=== PATIENT | male | born 1965 | race African-American/Black ===

== ENCOUNTER 2016-03-23 17:38 | Emergency (ER) | payer MEDICAID, OTHER ==
[~2016-03-23] VITALS: Ht 185.4 cm; Wt 127.9 kg
[2016-03-23 19:16] LABS: Hematocrit 42.5 % (41.0-53.0); Hemoglobin 13.6 g/dL (13.5-17.5); Mean Corpuscular Hemoglobin 29.8 pg (28.0-32.0); Mean Corpuscular Hgb Conc. 32.1 g/dL (32.0-36.0); Mean Corpuscular Volume 92.7 fL (80.0-100.0); Mean Platelet Volume 9.7 fL (7.4-10.4); Platelet Count (auto) 190 10^3/uL (140-450); Red Cell Distribution Width 13.6 % (11.6-16.0); White Blood Cell 10.9 10^3/uL (4.4-10.8)
[2016-03-23 19:35] LABS: Albumin 3.4 g/dL (3.4-5.0); BUN/Creatinine Ratio 9.1; Calcium 8.5 mg/dL (8.5-10.1); Metamyelocytes % 0; Myelocytes % 0; Potassium 3.3 mmol/L (3.5-5.1); Promyelocytes % 0; Reactive Lymphocytes 0
[2016-03-23 19:37] LABS: Bilirubin, Total 0.8 mg/dL (0.2-1.0)
[2016-03-23 20:09] LABS: Platelet Estimate Adequate
[2016-03-23 20:11] LABS: Giant Platelets Few
[2016-03-24] MEDS ORDERED: VANCOMYCIN 1GM/250ML D5W 250 ML IV ONE (03:00)
[2016-03-24] MEDS ORDERED: POTASSIUM CHL 20 Meq TABLET PO ONE (03:00)
[2016-03-24] MEDS ORDERED: cefTRIAXone 1GM/50ML D5W 50 ML IV ONE (03:00)
[2016-03-24 04:18] VITALS: BP 136/90
== END 2016-03-24 06:20 | disposition home or self-care (01) ==
LOC: ER 17:49
DX: L02.416 Cutaneous abscess of left lower limb (principal); E11.9 Type 2 diabetes mellitus without complications; E87.6 Hypokalemia
CPT/HCPCS: 36415; 80053; 85007; 85027; 87040; 96365; 96368; 99284; J0696; J3370

== ENCOUNTER 2022-03-25 22:19 | Emergency (ER) | payer OTHER, MEDICAID ==
[~2022-03-25] VITALS: Ht 185.4 cm; Wt 113.6 kg
[2022-03-25 22:20] VITALS: BP 151/77
[2022-03-25 22:48] LABS: Basophils # (auto) 0.1 10 ^3/uL (0-0.2); Eosinophils # (auto) 0.1 10 ^3/uL (0-0.8); Eosinophils % (auto) 1.4 % (0.0-7.0); Hematocrit 38.9 % (41.0-53.0); Hemoglobin 13.2 g/dL (13.5-17.5); Lymphocytes # (auto) 3.1 10 ^3/uL (0.4-5.4); Lymphocytes % (auto) 32.1 % (10.0-50.0); Mean Corpuscular Hemoglobin 31.5 pg (28.0-32.0); Mean Corpuscular Hgb Conc. 33.9 g/dL (32.0-36.0); Mean Corpuscular Volume 92.8 fL (80.0-100.0); Monocytes # (auto) 0.8 10 ^3/uL (0-1.3); Monocytes % (auto) 8.2 % (0.0-12.0); Neutrophils # (auto) 5.6 10 ^3/uL (1.6-8.6); Neutrophils % (auto) 57.3 % (37.0-80.0); Red Blood Cells 4.19 10^6/uL (4.5-5.90); Red Cell Distribution Width 13.2 % (11.8-14.3); White Blood Cell 9.8 10^3/uL (4.4-10.8)
[2022-03-25 23:07] LABS: Albumin 3.6 g/dL (3.4-5.0); Calcium 9.1 mg/dL (8.5-10.1); Potassium 3.7 mmol/L (3.5-5.1)
[2022-03-25 23:09] LABS: BUN/Creatinine Ratio 12.3
[2022-03-25 23:11] LABS: Bilirubin, Total 0.6 mg/dL (0.2-1.0); Total Protein 7.5 g/dL (6.4-8.2)
[2022-03-25 23:23] LABS: INR 1.07 (0.9-1.15); Partial Thromboplastin Time 28.5 sec (24.6-33.4)
== END 2022-03-26 06:10 | disposition home or self-care (01) ==
LOC: ER 22:19
DX: R07.89 Other chest pain (principal); I10 Essential (primary) hypertension; E11.9 Type 2 diabetes mellitus without complications
CPT/HCPCS: 36415; 71045; 80053; 83735; 83880; 84484; 85025; 85610; 85730; 93005